=== PATIENT | male | born 1980 | race Caucasian/White ===

== ENCOUNTER 2019-06-18 15:28 | Emergency (ER) | payer MEDICAID ==
[2019-06-18] MEDS ORDERED: Acetaminophen/HYDROcodone 325-5 MG Tab ONE (15:50)
[2019-06-18] MEDS ORDERED: Methocarbamol 500 MG Tab ONE (15:50)
--- NOTE | 2019-06-18 16:19 | EDM.PDOC ---
ED HPI GENERAL MEDICAL PROBLEM - General Chief Complaint: Back Pain or Injury Stated Complaint: Lower Back Pain Time Seen by Provider: 06/18/19 15:52 Source of Information: Reports: Patient History Limitations: Reports: No Limitations - History of Present Illness INITIAL COMMENTS - FREE TEXT/NARRATIVE: Duran is known to have occasional back flare ups. Lives in [place] and here with the [employer] [facility]. He usually follows with a chiropractor. Last year, he was managed with temporary hydrocodone and oxycodone after falling 8 feet off a roof. He is in recovery. He has patient support assistant here with him. Yesterday, he slipped and twisted his back getting back into an ice shack. Since then, he has had a painful spasm in his left low back despite copious OTC nsaids. Going home tomorrow. He is in recovery. They were kind enough to give permission to speak with their groups [employer]. She concurred under the circumstances with my recommendation to dispense 10 tablets and some robaxin for the 10+ hour ride tomorrow. He has had no urinary retention, sensory deficits, or weakness. Pain is exacerbated by sitting and positional movement. Past Medical History - Past Health History Medical/Surgical History: Denies Medical/Surgical History Other Gastrointestinal History: Colitis since 2011 Other Musculoskeletal History: Back pain from falling off a roof a year ago. Psychiatric History: Reports: ADHD, Anxiety, Depression - Past Surgical History GI Surgical History: Reports: None Musculoskeletal Surgical History: Reports: None Social & Family History - Family History Family Medical History: Noncontributory - Tobacco Use Smoking Status *Q: Former Smoker Years of Tobacco use: 26 Used Tobacco, but Quit: Yes Month/Year Tobacco Last Used: 01/2019 Second Hand Smoke Exposure: No - Caffeine Use Caffeine Use: Reports: Coffee, Soda - Alcohol Use Days Per Week of Alcohol Use: 0 - Recreational Drug Use Recreational Drug Use: Yes Drug Use in Last 12 Months: Yes Recreational Drug Type: Reports: Marijuana/Hashish, Methamphetamine ED ROS GENERAL - Review of Systems Review Of Systems: See Below Musculoskeletal: Reports: Back Pain, Muscle Stiffness. Denies: Leg Pain Skin: Reports: No Symptoms Neurological: Reports: No Symptoms Psychiatric: Reports: No Symptoms ED EXAM,LOWER BACK PAIN/INJURY - Physical Exam Exam: See Below Exam Limited By: No Limitations General Appearance: Alert, WD/WN, No Apparent Distress Head: Atraumatic, Normocephalic Neck: Normal Inspection, Supple, Non-Tender, Full Range of Motion Respiratory/Chest: No Respiratory Distress GI/Abdominal: No Distention Back Exam: Muscle Spasm, Paraspinal Tenderness. No: CVA Tenderness (R), CVA Tenderness (L), Vertebral Tenderness (left paravertebral muscle spasm that reproduces pain exactly with palpation ) Extremities: Normal Range of Motion Course - Vital Signs Last Recorded V/S: Last Vital Signs Temp 96.7 F 06/18/19 15:42 Pulse 83 06/18/19 15:42 Resp 18 06/18/19 15:42 BP 132/89 06/18/19 15:42 Pulse Ox 98 06/18/19 15:42 Departure - Departure Time of Disposition: 16:00 Disposition: Home, Self-Care 01 Clinical Impression: Lumbar strain Qualifiers: Encounter type: initial encounter Qualified Code(s): S39.012A - Strain of muscle, fascia and tendon of lower back, initial encounter - Discharge Information Instructions: Acetaminophen; Hydrocodone tablets or capsules, Methocarbamol tablets Referrals: PCP,None [Primary Care Provider] - Forms: ED Department Discharge Additional Instructions: - Take Methocarbamol 500 mg - 1 tablet every 6 hours as needed. - Take APAP/Hydrocodone 325/5 mg - 1-2 tablets every 4 hours when needed for pain. - May come back to the ER for worsening of symptoms or any other untoward issues. - Follow-up with your provider when you go back home. Sepsis Event Note - Evaluation Sepsis Screening Result: No Definite Risk - Focused Exam Vital Signs: Vital Signs Temp Pulse Resp BP Pulse Ox 06/18/19 15:42 96.7 F 83 18 132/89 98 Date Exam was Performed: 06/18/19 Time Exam was Performed: 16:13 - Assessment/Plan Plan: Explained reasons to return right away, including urinary retention, saddle anesthesia, and/or lower extremity weakness. Advised on OTC measures and recommendations in terms of his sponsor monitoring his limited supply of pain medicine for breakthrough above naproxen and robaxin, heat/ice, stretching, massage, OTC salves/tens unit.
== END 2019-06-18 16:33 | disposition home or self-care (01) ==
LOC: LB.ED 15:28
DX: S39.012A Strain of muscle, fascia and tendon of lower back, initial encounter (principal); Z87.891 Personal history of nicotine dependence; W01.0XXA Fall on same level from slipping, tripping and stumbling without subsequent striking against object, initial encounter; X50.1XXA Overexertion from prolonged static or awkward postures, initial encounter; Y93.89 Activity, other specified; Y92.89 Other specified places as the place of occurrence of the external cause
CPT/HCPCS: 99283; A9270